=== PATIENT | female | born 1985 | race Caucasian/White ===

== ENCOUNTER 2023-09-14 15:12 | Inpatient (IN) | payer MEDICAID ==
[~2023-09-14] VITALS: Ht 157.5 cm; Wt 61.2 kg
[2023-09-14 15:17] VITALS: BP 142/55; PULSE 81; RESP 17; TEMP 97.4; O2SAT 98
[2023-09-14 15:44] LABS: BASOPHILS % (AUTO) 0.9 % (0.0-2.0); EOSINOPHILS % (AUTO) 0.3 % (0.0-4.0); LYMPHOCYTES # (AUTO) 1.7 K/uL (2.5-16.5); MEAN CORPUSCULAR HEMOGLOBIN 13 pg (27-31); MEAN CORPUSCULAR HGB CONC 26 g/dL (33-37); MEAN CORPUSCULAR VOLUME 51.1 fL (80-94); MONOCYTES # (AUTO) 0.2 K/uL (0.8-1.0); MONOCYTES % (AUTO) 4.1 % (1.7-9.3); NEUTROPHILS # (AUTO) 2.7 K/uL (1.8-7.7); NEUTROPHILS % (AUTO) 58.7 % (42.2-75.2); PLATELET COUNT (AUTO) 288 K/uL (140-450); RED BLOOD CELL COUNT(AUTO) 3.52 MIL/uL (4.20-5.40); RED CELL DISTRIBUTION WIDTH 23.2 % (11.6-13.7); WHITE BLOOD COUNT (AUTO) 4.7 K/uL (4.8-10.8)
[2023-09-14 15:49] LABS: HEMOGLOBIN 4.7 g/dL (12.0-16.0)
[2023-09-14 15:59] LABS: INR 1.04 (0.8-1.2); PROTHROMBIN TIME 10.9 secs (10.8-13.4)
[2023-09-14 16:05] LABS: ALBUMIN 3.9 g/dL (3.4-5.0); ANION GAP 12.1 (8-16); CALCIUM 8.3 mg/dL (8.5-10.1); CARBON DIOXIDE 23.6 mmol/L (21-32); CREATININE 0.7 mg/dL (0.6-1.3); POTASSIUM 3.7 mmol/L (3.5-5.1); TOTAL BILIRUBIN 0.9 mg/dL (0.0-1.0); TOTAL PROTEIN, SERUM 7.4 g/dL (6.4-8.2)
[2023-09-14 16:09] LABS: APPEARANCE,URINE CLEAR (CLEAR); BILIRUBIN,URINE NEGATIVE (NEGATIVE); BLOOD, URINE NEGATIVE (NEGATIVE); COLOR,URINE YELLOW (YELLOW); LEUKOCYTE ESTERASE ,URINE NEGATIVE (NEGATIVE); NITRITE, URINE NEGATIVE (NEGATIVE); PROTEIN,URINE NEGATIVE (NEGATIVE); UGLUCOSE NEGATIVE (NEGATIVE); UROBILINOGEN,URINE 0.2 EU/dL (0.2 - 1)
[2023-09-14 16:10] LABS: PARTIAL THROMBOPLASTIN TIME 19.9 secs (22-35.6)
[2023-09-14 20:23] VITALS: BP 105/51; PULSE 60; PULSE 65; RESP 18; TEMP 98.2; O2SAT 98
[2023-09-14] MEDS ORDERED: diphenhydrAMINE 50 MG/ML VIAL IVP ONE (23:50)
[2023-09-15] MEDS: ACETAMINOPHEN 325 MG TAB PO PRN ×2 (00:22→11:36)
[2023-09-15 02:04] LABS: BASOPHILS # (AUTO) 0.1 K/uL (0.00-0.22); BASOPHILS % (AUTO) 0.9 % (0.0-2.0); EOSINOPHILS # (AUTO) 0.1 K/uL (0-0.4); HEMATOCRIT 21.4 % (36-48); LYMPHOCYTES # (AUTO) 1.9 K/uL (2.5-16.5); LYMPHOCYTES % (AUTO) 30.8 % (20.5-51.1); MEAN CORPUSCULAR HEMOGLOBIN 17 pg (27-31); MEAN CORPUSCULAR HGB CONC 29 g/dL (33-37); MEAN CORPUSCULAR VOLUME 58.9 fL (80-94); MONOCYTES # (AUTO) 0.3 K/uL (0.8-1.0); MONOCYTES % (AUTO) 5.2 % (1.7-9.3); NEUTROPHILS # (AUTO) 3.9 K/uL (1.8-7.7); NEUTROPHILS % (AUTO) 62.1 % (42.2-75.2); PLATELET COUNT (AUTO) 261 K/uL (140-450); RED BLOOD CELL COUNT(AUTO) 3.64 MIL/uL (4.20-5.40); RED CELL DISTRIBUTION WIDTH 33.1 % (11.6-13.7); WHITE BLOOD COUNT (AUTO) 6.3 K/uL (4.8-10.8)
[2023-09-15 02:13] LABS: APPEARANCE,URINE CLEAR (CLEAR); BILIRUBIN,URINE NEGATIVE (NEGATIVE); BLOOD, URINE NEGATIVE (NEGATIVE); COLOR,URINE YELLOW (YELLOW); LEUKOCYTE ESTERASE ,URINE NEGATIVE (NEGATIVE); NITRITE, URINE NEGATIVE (NEGATIVE); PROTEIN,URINE TRACE (NEGATIVE); UGLUCOSE NEGATIVE (NEGATIVE)
[2023-09-15] MEDS ORDERED: methylPREDNISolone SS 40 MG/ML VIAL IVP ONE (02:15)
[2023-09-15 02:35] LABS: HEMOGLOBIN 6.2 g/dL (12.0-16.0)
[2023-09-15 02:39] LABS: BACTERIA,URINE 1+ /HPF (None Seen); RBC,URINE NONE SEEN /HPF (0-5); WBC,URINE 0-5 /HPF (0-5)
[2023-09-15 02:40] LABS: SQUAMOUS EPITHELIAL CELL,UR 20-50 /LPF (0-3 (FEW))
[2023-09-15 02:42] LABS: ANION GAP 12.4 (8-16); CALCIUM 8.1 mg/dL (8.5-10.1); CARBON DIOXIDE 24.7 mmol/L (21-32); CREATININE 0.7 mg/dL (0.6-1.3); POTASSIUM 4.1 mmol/L (3.5-5.1)
[2023-09-15 04:00] VITALS: BP 101/51; PULSE 55; RESP 18; TEMP 97.7; O2SAT 98
[2023-09-15 06:54] LABS: BASOPHILS % (AUTO) 0.8 % (0.0-2.0); EOSINOPHILS % (AUTO) 0.5 % (0.0-4.0); HEMATOCRIT 21.7 % (36-48); LYMPHOCYTES # (AUTO) 1.1 K/uL (2.5-16.5); LYMPHOCYTES % (AUTO) 18.2 % (20.5-51.1); MEAN CORPUSCULAR HEMOGLOBIN 17 pg (27-31); MEAN CORPUSCULAR HGB CONC 29 g/dL (33-37); MEAN CORPUSCULAR VOLUME 58.8 fL (80-94); MONOCYTES # (AUTO) 0.1 K/uL (0.8-1.0); MONOCYTES % (AUTO) 1.8 % (1.7-9.3); NEUTROPHILS # (AUTO) 4.8 K/uL (1.8-7.7); NEUTROPHILS % (AUTO) 78.7 % (42.2-75.2); PLATELET COUNT (AUTO) 249 K/uL (140-450); RED BLOOD CELL COUNT(AUTO) 3.69 MIL/uL (4.20-5.40); RED CELL DISTRIBUTION WIDTH 31.9 % (11.6-13.7); WHITE BLOOD COUNT (AUTO) 6.1 K/uL (4.8-10.8)
[2023-09-15 07:24] LABS: ALBUMIN 3.5 g/dL (3.4-5.0); ANION GAP 14.4 (8-16); CALCIUM 8.2 mg/dL (8.5-10.1); CARBON DIOXIDE 22.7 mmol/L (21-32); CREATININE 0.6 mg/dL (0.6-1.3); POTASSIUM 4.1 mmol/L (3.5-5.1); TOTAL BILIRUBIN 0.9 mg/dL (0.0-1.0); TOTAL PROTEIN, SERUM 6.7 g/dL (6.4-8.2)
[2023-09-15 07:31] LABS: HEMOGLOBIN 6.3 g/dL (12.0-16.0)
[2023-09-15 08:00] VITALS: PULSE 50
[2023-09-15] MEDS ORDERED: diphenhydrAMINE 50 MG CAP PO ONE (11:05)
[2023-09-15 16:00] VITALS: BP 108/55; PULSE 65; RESP 18; TEMP 98.8; O2SAT 100
[2023-09-15 17:05] LABS: HEMATOCRIT 26.5 % (36-48); HEMOGLOBIN 7.9 g/dL (12.0-16.0)
[2023-09-15 20:00] VITALS: PULSE 63; RESP 18; O2SAT 98
[2023-09-16] VITALS: BP 114/61; PULSE 63; RESP 18; TEMP 97; O2SAT 98
[2023-09-16 06:28] LABS: BASOPHILS % (AUTO) 0.2 % (0.0-2.0); HEMATOCRIT 25.4 % (36-48); HEMOGLOBIN 7.7 g/dL (12.0-16.0); LYMPHOCYTES # (AUTO) 1.8 K/uL (2.5-16.5); MEAN CORPUSCULAR HEMOGLOBIN 18 pg (27-31); MEAN CORPUSCULAR HGB CONC 30 g/dL (33-37); MEAN CORPUSCULAR VOLUME 61.2 fL (80-94); MONOCYTES # (AUTO) 0.5 K/uL (0.8-1.0); MONOCYTES % (AUTO) 4.7 % (1.7-9.3); NEUTROPHILS # (AUTO) 8.7 K/uL (1.8-7.7); NEUTROPHILS % (AUTO) 79.1 % (42.2-75.2); PLATELET COUNT (AUTO) 243 K/uL (140-450); RED BLOOD CELL COUNT(AUTO) 4.15 MIL/uL (4.20-5.40); RED CELL DISTRIBUTION WIDTH 34.4 % (11.6-13.7); WHITE BLOOD COUNT (AUTO) 11.1 K/uL (4.8-10.8)
[2023-09-16 08:00] VITALS: BP 104/53; PULSE 48; RESP 18; TEMP 96.4; O2SAT 100
[2023-09-16 13:46] LABS: HEMATOCRIT 26.3 % (36-48); HEMOGLOBIN 7.9 g/dL (12.0-16.0)
[2023-09-16 17:02] VITALS: BP 104/53; PULSE 50; RESP 18; TEMP 97.7
[2023-09-16] MEDS ORDERED: FERR325E14 PO (17:02)
== END 2023-09-16 18:50 | disposition home or self-care (01) | DRG 532 ==
LOC: MED 15:12 → MMU 17:26 → MTU 17:55
PROVIDERS: ADMIT General Practice; ATTEND General Practice
PROC: 30233N1 Transfusion of Nonautologous Red Blood Cells into Peripheral Vein, Percutaneous Approach (ICD-10-PCS; principal; 2023-09-15)
PROC: 02HV33Z Insertion of Infusion Device into Superior Vena Cava, Percutaneous Approach (ICD-10-PCS; 2023-09-15)
PROC: B548ZZA Ultrasonography of Superior Vena Cava, Guidance (ICD-10-PCS; 2023-09-15)
DX: D25.9 Leiomyoma of uterus, unspecified (principal); D50.0 Iron deficiency anemia secondary to blood loss (chronic); F12.90 Cannabis use, unspecified, uncomplicated; F17.200 Nicotine dependence, unspecified, uncomplicated; N92.0 Excessive and frequent menstruation with regular cycle; R19.09 Other intra-abdominal and pelvic swelling, mass and lump
CPT/HCPCS: 36415; 36430; 76856; 80048; 80053; 81001; 81003; 85018; 85025; 85045; 85610; 85730; 86886; 86900; 86901; 86920; 99291; J1200; J2920; P9016; Q0092; Q0163; Q9967

== ENCOUNTER 2023-09-20 11:25 | Emergency (ER) | payer MEDICAID ==
[~2023-09-20] VITALS: Ht 127 cm; Wt 54.4 kg
[~2023-09-20 11:25] MED LIST: FERR325E14 PO
[2023-09-20 11:43] VITALS: BP 130/54; PULSE 62; RESP 18; TEMP 97.4; O2SAT 100
[2023-09-20] MEDS ORDERED: NACL 0.9% 1,000 ML IV ONE (13:00)
[2023-09-20 13:19] LABS: BASOPHILS # (AUTO) 0.1 K/uL (0.00-0.22); BASOPHILS % (AUTO) 0.6 % (0.0-2.0); EOSINOPHILS % (AUTO) 0.6 % (0.0-4.0); HEMATOCRIT 30.5 % (36-48); LYMPHOCYTES # (AUTO) 1.5 K/uL (2.5-16.5); LYMPHOCYTES % (AUTO) 17.3 % (20.5-51.1); MEAN CORPUSCULAR HEMOGLOBIN 18 pg (27-31); MEAN CORPUSCULAR HGB CONC 30 g/dL (33-37); MEAN CORPUSCULAR VOLUME 62.4 fL (80-94); MONOCYTES # (AUTO) 0.3 K/uL (0.8-1.0); MONOCYTES % (AUTO) 3.6 % (1.7-9.3); NEUTROPHILS # (AUTO) 6.7 K/uL (1.8-7.7); NEUTROPHILS % (AUTO) 77.9 % (42.2-75.2); PLATELET COUNT (AUTO) 300 K/uL (140-450); RED BLOOD CELL COUNT(AUTO) 4.89 MIL/uL (4.20-5.40); RED CELL DISTRIBUTION WIDTH 34.8 % (11.6-13.7); WHITE BLOOD COUNT (AUTO) 8.6 K/uL (4.8-10.8)
[2023-09-20 13:36] LABS: INR 1.05 (0.8-1.2); PARTIAL THROMBOPLASTIN TIME 22.8 secs (22-35.6)
[2023-09-20 13:40] LABS: ANISOCYTOSIS 3+; HYPOCHROMASIA 2+
[2023-09-20] MEDS ORDERED: medroxyPROGESTERone 10 MG TAB PO SCH (13:40)
[2023-09-20 13:41] LABS: BURR CELLS 1+; OVALOCYTES 1+; SCHISTOCYTES 2+; TEAR DROP CELLS 1+
[2023-09-20 13:46] LABS: APPEARANCE,URINE CLEAR (CLEAR); BILIRUBIN,URINE NEGATIVE (NEGATIVE); BLOOD, URINE 3+ (NEGATIVE); COLOR,URINE YELLOW (YELLOW); LEUKOCYTE ESTERASE ,URINE 2+ (NEGATIVE); NITRITE, URINE POSITIVE (NEGATIVE); PH,URINE 6.5 (5.0-9.0); PROTEIN,URINE 3+ (NEGATIVE); UGLUCOSE NEGATIVE (NEGATIVE)
[2023-09-20 13:49] LABS: ALBUMIN 4.1 g/dL (3.4-5.0); ANION GAP 12.6 (8-16); CALCIUM 8.7 mg/dL (8.5-10.1); CARBON DIOXIDE 28.2 mmol/L (21-32); CREATININE 0.7 mg/dL (0.6-1.3); POTASSIUM 3.8 mmol/L (3.5-5.1); TOTAL BILIRUBIN 0.7 mg/dL (0.0-1.0); TOTAL PROTEIN, SERUM 7.9 g/dL (6.4-8.2)
[2023-09-20] MEDS ORDERED: MEDR10TA PO (13:49)
[2023-09-20] MEDS ORDERED: IBUP-2213 PO (13:50)
[2023-09-20 13:55] VITALS: BP 122/56; PULSE 59; RESP 18; TEMP 98.1; O2SAT 100
[2023-09-20 14:00] LABS: BACTERIA,URINE 0-2 /HPF (None Seen); RBC,URINE >100 /HPF (0-5); WBC,URINE 0-5 /HPF (0-5)
[2023-09-20 14:01] LABS: SQUAMOUS EPITHELIAL CELL,UR 0-3 (FEW) /LPF (0-3 (FEW))
[2023-09-20] MEDS ORDERED: CEPH-588 PO (21:05)
== END 2023-09-20 14:20 | disposition home or self-care (01) ==
LOC: MED 11:25
DX: N92.0 Excessive and frequent menstruation with regular cycle (principal); R19.09 Other intra-abdominal and pelvic swelling, mass and lump; D64.9 Anemia, unspecified; R10.2 Pelvic and perineal pain; Z79.899 Other long term (current) drug therapy; Z79.1 Long term (current) use of non-steroidal anti-inflammatories (NSAID)
CPT/HCPCS: 36415; 80053; 81001; 81025; 84702; 85025; 85610; 85730; 86886; 86900; 86901; 87086; 96360; 99283; J7030

== ENCOUNTER 2024-03-04 22:55 | Inpatient (IN) | payer OTHER ==
[~2024-03-04] VITALS: Ht 167.6 cm; Wt 59.9 kg
[~2024-03-04 22:55] MED LIST changes: +CEPH-588 PO; +IBUP-2213 PO; +MEDR10TA PO
[2024-03-04 23:02] VITALS: BP 110/76; PULSE 82; RESP 18; TEMP 98.5; O2SAT 100
[2024-03-04 23:41] LABS: BASOPHILS # (AUTO) 0.1 K/uL (0.00-0.22); BASOPHILS % (AUTO) 1.3 % (0.0-2.0); EOSINOPHILS # (AUTO) 0.1 K/uL (0-0.4); EOSINOPHILS % (AUTO) 0.7 % (0.0-4.0); LYMPHOCYTES # (AUTO) 2.5 K/uL (2.5-16.5); LYMPHOCYTES % (AUTO) 35.6 % (20.5-51.1); MEAN CORPUSCULAR HEMOGLOBIN 14 pg (27-31); MEAN CORPUSCULAR HGB CONC 26 g/dL (33-37); MEAN CORPUSCULAR VOLUME 51.9 fL (80-94); MONOCYTES # (AUTO) 0.3 K/uL (0.8-1.0); MONOCYTES % (AUTO) 3.6 % (1.7-9.3); NEUTROPHILS # (AUTO) 4.1 K/uL (1.8-7.7); NEUTROPHILS % (AUTO) 58.8 % (42.2-75.2); PLATELET COUNT (AUTO) 353 K/uL (140-450); RED BLOOD CELL COUNT(AUTO) 3.89 MIL/uL (4.20-5.40); RED CELL DISTRIBUTION WIDTH 22.4 % (11.6-13.7)
[2024-03-04 23:50] LABS: HEMATOCRIT 20.2 % (36-48); HEMOGLOBIN 5.3 g/dL (12.0-16.0)
[2024-03-04 23:57] LABS: ANION GAP 12.5 (8-16); CALCIUM 8.8 mg/dL (8.5-10.1); CARBON DIOXIDE 25.1 mmol/L (21-32); CREATININE 0.8 mg/dL (0.6-1.3); POTASSIUM 3.6 mmol/L (3.5-5.1)
[2024-03-05] MEDS ORDERED: ACETAMINOPHEN 325 MG TAB PO PRN (10:10)
[2024-03-05] MEDS ORDERED: ONDANSETRON 4 MG/2 ML VIAL IVP PRN (10:10)
[2024-03-05] MEDS ORDERED: MORPHINE SULFATE 2 MG/ML SYR IVP PRN (10:10)
[2024-03-05 12:00] VITALS: PULSE 60; RESP 16; RESP 18; O2SAT 100; O2SAT 99
[2024-03-05 19:43] VITALS: BP 102/46; PULSE 71; RESP 18; TEMP 98.3; O2SAT 99
[2024-03-05 20:00] VITALS: PULSE 71; RESP 18; O2SAT 99
[2024-03-05] MEDS: MEDS-TO-BEDS MC SCH (20:44)
[2024-03-06 02:36] LABS: HEMOGLOBIN 7.5 g/dL (12.0-16.0)
[2024-03-06 04:00] VITALS: BP 107/40; PULSE 58; RESP 16; TEMP 97.3; O2SAT 99
[2024-03-06 06:25] LABS: BASOPHILS % (AUTO) 0.3 % (0.0-2.0); EOSINOPHILS # (AUTO) 0.1 K/uL (0-0.4); EOSINOPHILS % (AUTO) 0.8 % (0.0-4.0); HEMATOCRIT 25.1 % (36-48); HEMOGLOBIN 7.5 g/dL (12.0-16.0); LYMPHOCYTES # (AUTO) 1.7 K/uL (2.5-16.5); LYMPHOCYTES % (AUTO) 26.6 % (20.5-51.1); MEAN CORPUSCULAR HEMOGLOBIN 19 pg (27-31); MEAN CORPUSCULAR HGB CONC 30 g/dL (33-37); MEAN CORPUSCULAR VOLUME 62.4 fL (80-94); MONOCYTES # (AUTO) 0.4 K/uL (0.8-1.0); MONOCYTES % (AUTO) 5.8 % (1.7-9.3); NEUTROPHILS # (AUTO) 4.2 K/uL (1.8-7.7); NEUTROPHILS % (AUTO) 66.5 % (42.2-75.2); PLATELET COUNT (AUTO) 273 K/uL (140-450); RED BLOOD CELL COUNT(AUTO) 4.02 MIL/uL (4.20-5.40); RED CELL DISTRIBUTION WIDTH 36.3 % (11.6-13.7); WHITE BLOOD COUNT (AUTO) 6.3 K/uL (4.8-10.8)
[2024-03-06 06:49] LABS: ANION GAP 13.3 (8-16); CALCIUM 8.6 mg/dL (8.5-10.1); CARBON DIOXIDE 23.9 mmol/L (21-32); CREATININE 0.7 mg/dL (0.6-1.3); POTASSIUM 4.2 mmol/L (3.5-5.1)
[2024-03-06 07:14] LABS: INR 1.05 (0.8-1.2); PARTIAL THROMBOPLASTIN TIME 21.2 secs (22-35.6)
[2024-03-06 08:00] VITALS: PULSE 61; RESP 18; O2SAT 99
[2024-03-06 17:10] VITALS: BP 107/40; PULSE 61; RESP 18; TEMP 97.3
== END 2024-03-06 18:05 | disposition home or self-care (01) | DRG 532 ==
LOC: MED 22:55 → MTU 03-05 10:09
PROVIDERS: ADMIT Hospitalist; ATTEND Hospitalist
PROC: 30233N1 Transfusion of Nonautologous Red Blood Cells into Peripheral Vein, Percutaneous Approach (ICD-10-PCS; principal; 2024-03-05)
DX: D25.9 Leiomyoma of uterus, unspecified (principal); D62 Acute posthemorrhagic anemia; N93.9 Abnormal uterine and vaginal bleeding, unspecified; Z79.899 Other long term (current) drug therapy
CPT/HCPCS: 36415; 80048; 83735; 85018; 85025; 85610; 85730; 86886; 86900; 86901; 86920; 99285; P9016

== ENCOUNTER 2024-03-06 11:30 | Inpatient (IN) | payer OTHER ==
[~2024-03-06] VITALS: Ht 162.6 cm; Wt 83.0 kg
[~2024-03-06 11:30] MED LIST changes: -CEPH-588 PO; -IBUP-2213 PO; -MEDR10TA PO
[2024-03-25 10:29] LABS: ALBUMIN 3.3 g/dL (3.4-5.0); ANION GAP 11.7 (8-16); CALCIUM 8.1 mg/dL (8.5-10.1); CREATININE 0.6 mg/dL (0.6-1.3); POTASSIUM 3.7 mmol/L (3.5-5.1); TOTAL BILIRUBIN 1.8 mg/dL (0.0-1.0); TOTAL PROTEIN, SERUM 6.3 g/dL (6.4-8.2)
[2024-03-25 10:58] LABS: BASOPHILS % (AUTO) 0.6 % (0.0-2.0); EOSINOPHILS % (AUTO) 0.3 % (0.0-4.0); HEMATOCRIT 30.1 % (36-48); LYMPHOCYTES # (AUTO) 1.1 K/uL (2.5-16.5); LYMPHOCYTES % (AUTO) 16.3 % (20.5-51.1); MEAN CORPUSCULAR HEMOGLOBIN 22 pg (27-31); MEAN CORPUSCULAR HGB CONC 31 g/dL (33-37); MEAN CORPUSCULAR VOLUME 68.8 fL (80-94); MONOCYTES # (AUTO) 0.3 K/uL (0.8-1.0); MONOCYTES % (AUTO) 4.9 % (1.7-9.3); NEUTROPHILS # (AUTO) 5.4 K/uL (1.8-7.7); NEUTROPHILS % (AUTO) 77.9 % (42.2-75.2); PLATELET COUNT (AUTO) 296 K/uL (140-450); RED BLOOD CELL COUNT(AUTO) 4.37 MIL/uL (4.20-5.40); RED CELL DISTRIBUTION WIDTH 34.7 % (11.6-13.7)
[2024-03-25 11:56] LABS: HEMOGLOBIN 9.4 g/dL (12.0-16.0)
[2024-03-25] MEDS ORDERED: SEVOFLURANE 250 ML BTL INH ONE (12:00)
[2024-03-25] MEDS ORDERED: PROPOFOL 200 MG/20 ML VIAL IV ONE (12:00)
[2024-03-25] MEDS: ceFAZolin 2,000 MG VIAL ONE (12:06)
[2024-03-25] MEDS: HYDROmorphone PFS 2 MG/ML SYR ONE ×2 (12:11→13:36)
[2024-03-25] MEDS ORDERED: IBUPROFEN 800 MG TAB PO PRN (12:25)
[2024-03-25] MEDS ORDERED: SIMETHICONE 80 MG TAB.CHEW PO PRN (12:25)
[2024-03-25] MEDS ORDERED: TEMAZEPAM 15 MG CAP PO PRN (12:25)
[2024-03-25] MEDS ORDERED: oxyCODONE/APAP 5/325 MG 1 TAB TAB PO PRN (12:25)
[2024-03-25] MEDS: BUPIVACAINE-MPF 0.25% 30 ML VIAL INJ ONE (12:34)
[2024-03-25] MEDS: LIDOCAINE/EPI 1% 1:100000 20 ML VIAL INJ ONE (12:34)
[2024-03-25] MEDS: ROCURONIUM 50 MG/5 ML VIAL IV ONE (12:36)
[2024-03-25] MEDS: ePHEDrine 50 MG/ML VIAL ONE ×2 (12:36)
[2024-03-25] MEDS: GLYCOPYRROLATE 0.2 MG/ML VIAL ONE ×2 (12:36→13:20)
[2024-03-25] MEDS: ONDANSETRON 4 MG/2 ML VIAL ONE (12:44)
[2024-03-25] MEDS: DEXAMETHASONE 4 MG/ML VIAL ONE (12:44)
[2024-03-25] MEDS: HYDROmorphone 1 MG/ML AMP IVP PRN ×2 (13:05→18:05)
[2024-03-25] MEDS: ACETAMINOPHEN 100 ML IV ONE (13:36)
[2024-03-25] MEDS: ACETAMINOPHEN 100 ML IV PRN (13:37)
[2024-03-25] MEDS ORDERED: ONDANSETRON 4 MG/2 ML VIAL IVP PRN (13:45)
[2024-03-25] MEDS: KETOROLAC 30 MG/ML VIAL IVP PRN (14:15)
[2024-03-25 15:15] VITALS: BP 101/33; PULSE 52; RESP 16; TEMP 96.9; O2SAT 97
[2024-03-25 16:00] VITALS: BP 95/46; PULSE 57; RESP 17; TEMP 97.3; O2SAT 97
[2024-03-25 20:00] VITALS: BP 105/52; PULSE 60; RESP 18; TEMP 98.3; O2SAT 98
[2024-03-25] MEDS: DOCUSATE SOD/SENNA 50/8.6 MG 1 TAB PO SCH (21:00)
[2024-03-25] MEDS: MEDS-TO-BEDS MC SCH (21:22)
[2024-03-26 04:00] VITALS: BP 102/47; PULSE 65; RESP 18; TEMP 98.1; O2SAT 99
[2024-03-26 08:00] VITALS: BP 102/57; PULSE 50; PULSE 60; RESP 18; TEMP 98.9; O2SAT 98
[2024-03-26] MEDS: oxyCODONE/APAP 5/325 MG 1 TAB TAB PO PRN (14:01)
[2024-03-26 16:00] VITALS: BP 106/53; PULSE 55; RESP 19; TEMP 98; O2SAT 97
[2024-03-26 20:00] VITALS: PULSE 75; RESP 18; TEMP 98.2; O2SAT 97
[2024-03-27 04:00] VITALS: BP 100/60; PULSE 56; RESP 18; TEMP 98; O2SAT 96
[2024-03-27 08:00] VITALS: PULSE 84; RESP 18; TEMP 98.1; O2SAT 99
== END 2024-03-27 13:10 | disposition home or self-care (01) | DRG 519 ==
LOC: MMU 03-25 09:45 → MTU 03-25 15:15
PROVIDERS: ADMIT Obstetrics & Gynecology; ATTEND Obstetrics & Gynecology
PROC: 0UT90ZL Resection of Uterus, Supracervical, Open Approach (ICD-10-PCS; principal; 2024-03-25 11:30)
DX: D25.1 Intramural leiomyoma of uterus (principal); N92.0 Excessive and frequent menstruation with regular cycle
CPT/HCPCS: 36415; 80053; 85025; 87081; 88307; J1100; J1170; J1885; J2001; J2405; J2704; J2710; J3490

== ENCOUNTER 2024-03-24 19:31 | Emergency (ER) | payer OTHER ==
[~2024-03-24] VITALS: Ht 154.9 cm; Wt 59.9 kg
[2024-03-24 19:52] VITALS: BP 102/43; PULSE 78; RESP 16; TEMP 98.8; O2SAT 100
[2024-03-24 21:02] LABS: BASOPHILS % (AUTO) 0.4 % (0.0-2.0); EOSINOPHILS % (AUTO) 0.3 % (0.0-4.0); HEMATOCRIT 22.1 % (36-48); LYMPHOCYTES # (AUTO) 2.2 K/uL (2.5-16.5); LYMPHOCYTES % (AUTO) 24.2 % (20.5-51.1); MEAN CORPUSCULAR HEMOGLOBIN 18 pg (27-31); MEAN CORPUSCULAR HGB CONC 30 g/dL (33-37); MEAN CORPUSCULAR VOLUME 61.2 fL (80-94); MONOCYTES # (AUTO) 0.4 K/uL (0.8-1.0); MONOCYTES % (AUTO) 4.2 % (1.7-9.3); NEUTROPHILS # (AUTO) 6.5 K/uL (1.8-7.7); NEUTROPHILS % (AUTO) 70.9 % (42.2-75.2); PLATELET COUNT (AUTO) 361 K/uL (140-450); RED BLOOD CELL COUNT(AUTO) 3.61 MIL/uL (4.20-5.40); RED CELL DISTRIBUTION WIDTH 31.7 % (11.6-13.7); WHITE BLOOD COUNT (AUTO) 9.1 K/uL (4.8-10.8)
[2024-03-24 21:07] LABS: ANION GAP 9.9 (8-16); CALCIUM 8.5 mg/dL (8.5-10.1); CARBON DIOXIDE 27.9 mmol/L (21-32); CREATININE 0.8 mg/dL (0.6-1.3); POTASSIUM 3.8 mmol/L (3.5-5.1)
[2024-03-24 21:16] LABS: HEMOGLOBIN 6.6 g/dL (12.0-16.0)
[2024-03-24 21:19] LABS: INR 0.94 (0.8-1.2); PARTIAL THROMBOPLASTIN TIME 21.2 secs (22-35.6); PROTHROMBIN TIME 9.9 secs (10.8-13.4)
[2024-03-25] MEDS: NACL 0.9% 1,000 ML IV ONE (00:51)
[2024-03-25 01:30] VITALS: TEMP 97.7
[2024-03-25 04:43] VITALS: BP 107/61; PULSE 62; RESP 16; O2SAT 97
== END 2024-03-25 04:45 | disposition home or self-care (01) ==
LOC: MED 19:31
DX: D64.9 Anemia, unspecified (principal); N93.8 Other specified abnormal uterine and vaginal bleeding; Z79.899 Other long term (current) drug therapy
CPT/HCPCS: 36415; 36430; 80048; 81025; 84484; 85025; 85610; 85730; 86886; 86900; 86901; 86920; 96360; 99291; P9016

== ENCOUNTER 2024-06-25 10:42 | Emergency (ER) | payer OTHER ==
[~2024-06-25] VITALS: Ht 152.4 cm; Wt 59.0 kg
[2024-06-25 10:48] VITALS: BP 114/57; PULSE 87; RESP 17; TEMP 98.5; O2SAT 92
[2024-06-25] MEDS ORDERED: ALBUTEROL SULFATE/IPRATROPIU 3 ML SOL IH ONE ×2 (11:14→11:45)
[2024-06-25] MEDS: ALBUTEROL SULFATE/IPRATROPIU 3 ML SOL IH ONE (11:18)
[2024-06-25] MEDS: predniSONE 20 MG TAB PO ONE (11:22)
[2024-06-25 11:49] LABS: FLU A ANTIGEN negative (NEGATIVE); FLU B ANTIGEN negative (NEGATIVE)
[2024-06-25] MEDS: ALBUTEROL 0.083% 2.5 MG/3 ML NEBU INH ONE ×2 (11:53→12:41)
[2024-06-25 11:54] VITALS: PULSE 58; RESP 16; O2SAT 94
[2024-06-25] MEDS ORDERED: ALBU0.0912 IH (12:16)
[2024-06-25] MEDS ORDERED: INHA1SPA89 MC (12:16)
[2024-06-25] MEDS ORDERED: PRED20TA5 PO (12:16)
[2024-06-25] MEDS ORDERED: LORA1T1237 PO (12:16)
[2024-06-25 12:41] VITALS: PULSE 71; RESP 16; O2SAT 91
[2024-06-25 13:29] VITALS: BP 91/51; PULSE 80; RESP 16; TEMP 98.5; O2SAT 8
== END 2024-06-25 13:29 | disposition home or self-care (01) ==
LOC: MED 10:42
DX: J98.01 Acute bronchospasm (principal); T78.40XA Allergy, unspecified, initial encounter; Z20.822 Contact with and (suspected) exposure to COVID-19; F17.210 Nicotine dependence, cigarettes, uncomplicated; Z90.710 Acquired absence of both cervix and uterus; Z79.899 Other long term (current) drug therapy; X58.XXXA Exposure to other specified factors, initial encounter
CPT/HCPCS: 87426; 87804; 94640; 99285; J7512; J7613

== ENCOUNTER 2024-07-13 09:52 | Emergency (ER) | payer OTHER ==
[~2024-07-13] VITALS: Ht 162.6 cm; Wt 50.8 kg
[~2024-07-13 09:52] MED LIST changes: +ALBU0.0912 IH; +INHA1SPA89 MC; +LORA1T1237 PO; +PRED20TA5 PO
[2024-07-13 09:56] VITALS: BP 116/59; PULSE 88; RESP 22; TEMP 97.9; O2SAT 93
[2024-07-13] MEDS: IPRATROPIUM 0.02% 0.5 MG/2.5 ML NEBU INH ONE (10:28)
[2024-07-13 10:29] VITALS: PULSE 92; RESP 28; O2SAT 97
[2024-07-13] MEDS: ALBUTEROL 0.083% 2.5 MG/3 ML NEBU INH ONE (10:29)
[2024-07-13] MEDS: predniSONE 20 MG TAB PO ONE (10:56)
[2024-07-13] MEDS ORDERED: ALBU0.0912 IH (12:26)
[2024-07-13] MEDS ORDERED: AZIT500T8 PO (12:26)
[2024-07-13] MEDS ORDERED: PRED20TA5 PO (12:26)
[2024-07-13] MEDS ORDERED: TIOT4MIS IH (12:26)
[2024-07-13 12:40] VITALS: BP 105/61; PULSE 93; RESP 23; TEMP 97.9; O2SAT 97
== END 2024-07-13 12:38 | disposition home or self-care (01) ==
LOC: MED 09:52
DX: R06.02 Shortness of breath (principal); R05.9 Cough, unspecified; F17.200 Nicotine dependence, unspecified, uncomplicated; Z71.6 Tobacco abuse counseling; Z79.899 Other long term (current) drug therapy
CPT/HCPCS: 71045; 94640; 99285; J7512; J7613; J7644

== ENCOUNTER 2024-07-28 17:08 | Inpatient (IN) | payer OTHER ==
[~2024-07-28] VITALS: Ht 157.5 cm; Wt 49.9 kg
[~2024-07-28 17:08] MED LIST changes: +AZIT500T8 PO; +TIOT4MIS IH
[2024-07-28] MEDS ORDERED: IPRATROPIUM 0.02% 0.5 MG/2.5 ML NEBU INH ONE (17:13)
[2024-07-28] MEDS ORDERED: ALBUTEROL 0.083% 2.5 MG/3 ML NEBU INH ONE (17:13)
[2024-07-28 17:16] VITALS: BP 132/77; PULSE 120; RESP 30; TEMP 99.1; O2SAT 89
[2024-07-28 17:35] VITALS: PULSE 99; RESP 17; O2SAT 93
[2024-07-28] MEDS: ALBUTEROL 0.083% 2.5 MG/3 ML NEBU INH ONE ×3 (17:39→20:48)
[2024-07-28] MEDS: IPRATROPIUM 0.02% 0.5 MG/2.5 ML NEBU INH ONE (17:39)
[2024-07-28 17:40] VITALS: PULSE 126; RESP 22; O2SAT 93
[2024-07-28] MEDS: methylPREDNISolone SS 125 MG/2 ML VIAL IVP ONE (18:00)
[2024-07-28] MEDS: KETOROLAC 30 MG/ML VIAL IVP ONE (19:22)
[2024-07-28 20:48] VITALS: PULSE 101; RESP 20; O2SAT 90
[2024-07-28 21:47] LABS: BASOPHILS # (AUTO) 0.1 K/uL (0.00-0.22); BASOPHILS % (AUTO) 0.3 % (0.0-2.0); EOSINOPHILS # (AUTO) 0.4 K/uL (0-0.4); EOSINOPHILS % (AUTO) 1.7 % (0.0-4.0); HEMATOCRIT 42.1 % (36-48); HEMOGLOBIN 13.1 g/dL (12.0-16.0); LYMPHOCYTES # (AUTO) 1.5 K/uL (2.5-16.5); LYMPHOCYTES % (AUTO) 6.9 % (20.5-51.1); MEAN CORPUSCULAR HEMOGLOBIN 21 pg (27-31); MEAN CORPUSCULAR HGB CONC 31 g/dL (33-37); MEAN CORPUSCULAR VOLUME 66.6 fL (80-94); MONOCYTES # (AUTO) 0.7 K/uL (0.8-1.0); MONOCYTES % (AUTO) 3.3 % (1.7-9.3); NEUTROPHILS # (AUTO) 19.3 K/uL (1.8-7.7); NEUTROPHILS % (AUTO) 87.8 % (42.2-75.2); PLATELET COUNT (AUTO) 280 K/uL (140-450); RED BLOOD CELL COUNT(AUTO) 6.33 MIL/uL (4.20-5.40); RED CELL DISTRIBUTION WIDTH 20.2 % (11.6-13.7); WHITE BLOOD COUNT (AUTO) 21.9 K/uL (4.8-10.8)
[2024-07-28 22:01] LABS: ALBUMIN 3.7 g/dL (3.4-5.0); ANION GAP 17.1 (8-16); CARBON DIOXIDE 24.6 mmol/L (21-32); POTASSIUM 3.7 mmol/L (3.5-5.1); TOTAL BILIRUBIN 0.5 mg/dL (0.0-1.0); TOTAL PROTEIN, SERUM 7.8 g/dL (6.4-8.2)
[2024-07-28] MEDS ORDERED: ALBUTEROL 0.083% 2.5 MG/3 ML NEBU INH PRN (23:25)
[2024-07-28] MEDS ORDERED: MORPHINE SULFATE 2 MG/ML SYR IVP PRN (23:25)
[2024-07-28] MEDS ORDERED: ONDANSETRON 4 MG/2 ML VIAL IVP PRN (23:25)
[2024-07-28] MEDS ORDERED: ACETAMINOPHEN 325 MG TAB PO PRN (23:25)
[2024-07-29] VITALS (14 sets, daily range): BP systolic 107–122; BP diastolic 55–67; PULSE 83–120; RESP 16–20; TEMP 97.3–98.5; O2SAT 92–100
[2024-07-29] MEDS ORDERED: methylPREDNISolone SS 40 MG in WATER STERILE 1 ML IV SCH
[2024-07-29] MEDS ORDERED: IPRATROPIUM 0.02% 0.5 MG/2.5 ML NEBU INH SCH (01:00)
[2024-07-29] MEDS: ALBUTEROL SULFATE/IPRATROPIU 3 ML SOL IH SCH ×2 (01:30→19:06)
[2024-07-29 05:31] LABS: HEMATOCRIT 36.9 % (36-48); HEMOGLOBIN 11.5 g/dL (12.0-16.0); LYMPHOCYTES # (AUTO) 0.7 K/uL (2.5-16.5); LYMPHOCYTES % (AUTO) 3.4 % (20.5-51.1); MEAN CORPUSCULAR HEMOGLOBIN 21 pg (27-31); MEAN CORPUSCULAR HGB CONC 31 g/dL (33-37); MONOCYTES # (AUTO) 0.1 K/uL (0.8-1.0); MONOCYTES % (AUTO) 0.7 % (1.7-9.3); NEUTROPHILS # (AUTO) 18.5 K/uL (1.8-7.7); NEUTROPHILS % (AUTO) 95.9 % (42.2-75.2); PLATELET COUNT (AUTO) 262 K/uL (140-450); WHITE BLOOD COUNT (AUTO) 19.3 K/uL (4.8-10.8)
[2024-07-29 05:55] LABS: ANION GAP 14.3 (8-16); CALCIUM 9.2 mg/dL (8.5-10.1); CARBON DIOXIDE 21.8 mmol/L (21-32); CREATININE 1.1 mg/dL (0.6-1.3); POTASSIUM 4.1 mmol/L (3.5-5.1)
[2024-07-29] MEDS: MEDS-TO-BEDS MC SCH (09:01)
[2024-07-29 16:12] LABS: FLU A ANTIGEN NEGATIVE (NEGATIVE); FLU B ANTIGEN NEGATIVE (NEGATIVE); RSV NEGATIVE (NEGATIVE)
[2024-07-29] MEDS: methylPREDNISolone SS 40 MG/ML VIAL IVP SCH (18:17)
[2024-07-29] MEDS: BUDESONIDE 0.5 MG/2 ML NEBU INH SCH (19:06)
[2024-07-29] MEDS ORDERED: BUDESONIDE 0.5 MG/2 ML NEBU INH SCH (19:30)
[2024-07-29] MEDS: FAMOTIDINE 20 MG TAB PO SCH (20:37)
[2024-07-30] VITALS (11 sets, daily range): BP systolic 98–122; BP diastolic 57–66; PULSE 78–120; RESP 16–21; TEMP 97.5–97.8; O2SAT 93–99
[2024-07-30 05:51] LABS: BASOPHILS % (AUTO) 0.1 % (0.0-2.0); HEMATOCRIT 35.3 % (36-48); HEMOGLOBIN 10.9 g/dL (12.0-16.0); LYMPHOCYTES # (AUTO) 0.9 K/uL (2.5-16.5); LYMPHOCYTES % (AUTO) 2.7 % (20.5-51.1); MEAN CORPUSCULAR HEMOGLOBIN 20 pg (27-31); MEAN CORPUSCULAR HGB CONC 31 g/dL (33-37); MEAN CORPUSCULAR VOLUME 65.9 fL (80-94); MONOCYTES # (AUTO) 0.2 K/uL (0.8-1.0); MONOCYTES % (AUTO) 0.5 % (1.7-9.3); NEUTROPHILS # (AUTO) 31.7 K/uL (1.8-7.7); NEUTROPHILS % (AUTO) 96.7 % (42.2-75.2); PLATELET COUNT (AUTO) 275 K/uL (140-450); RED BLOOD CELL COUNT(AUTO) 5.36 MIL/uL (4.20-5.40)
[2024-07-30 06:21] LABS: WHITE BLOOD COUNT (AUTO) 32.7 K/uL (4.8-10.8)
[2024-07-30 07:01] LABS: MAGNESIUM 1.8 mg/dL (1.8-2.4)
[2024-07-30 07:02] LABS: PHOSPHORUS 3.6 mg/dL (2.5-4.9)
[2024-07-30 07:05] LABS: ANION GAP 14.2 (8-16); CALCIUM 8.9 mg/dL (8.5-10.1); CARBON DIOXIDE 23.1 mmol/L (21-32); POTASSIUM 4.3 mmol/L (3.5-5.1)
[2024-07-30 07:06] LABS: CREATININE 0.9 mg/dL (0.6-1.3)
[2024-07-30] MEDS: ENOXAPARIN 40 MG/0.4 ML SYR SUBQ SCH (08:52)
[2024-07-30] MEDS ORDERED: methylPREDNISolone SS 40 MG/ML VIAL IVP SCH (21:00)
[2024-07-30] MEDS: methylPREDNISolone SS 40 MG/ML VIAL IVP SCH (22:29)
[2024-07-31] VITALS (10 sets, daily range): BP systolic 97–132; BP diastolic 55–70; PULSE 71–116; RESP 16–19; TEMP 97.4–98; O2SAT 93–99
[2024-07-31 05:44] LABS: HEMATOCRIT 34.6 % (36-48); HEMOGLOBIN 10.6 g/dL (12.0-16.0); LYMPHOCYTES % (AUTO) 3.7 % (20.5-51.1); MEAN CORPUSCULAR HEMOGLOBIN 20 pg (27-31); MEAN CORPUSCULAR HGB CONC 31 g/dL (33-37); MEAN CORPUSCULAR VOLUME 66.2 fL (80-94); MONOCYTES # (AUTO) 0.2 K/uL (0.8-1.0); MONOCYTES % (AUTO) 0.8 % (1.7-9.3); NEUTROPHILS # (AUTO) 26.7 K/uL (1.8-7.7); NEUTROPHILS % (AUTO) 95.5 % (42.2-75.2); PLATELET COUNT (AUTO) 279 K/uL (140-450); RED BLOOD CELL COUNT(AUTO) 5.22 MIL/uL (4.20-5.40); RED CELL DISTRIBUTION WIDTH 21.3 % (11.6-13.7)
[2024-07-31 05:57] LABS: MAGNESIUM 2.2 mg/dL (1.8-2.4); PHOSPHORUS 3.9 mg/dL (2.5-4.9)
[2024-07-31 06:00] LABS: ANION GAP 13.8 (8-16); CALCIUM 8.5 mg/dL (8.5-10.1); CARBON DIOXIDE 22.3 mmol/L (21-32); CREATININE 0.9 mg/dL (0.6-1.3); POTASSIUM 4.1 mmol/L (3.5-5.1)
[2024-08-01] VITALS (7 sets, daily range): BP systolic 102–132; BP diastolic 55–70; PULSE 58–82; RESP 16–19; TEMP 97.9–98.6; O2SAT 93–98
[2024-08-01 05:15] LABS: HEMATOCRIT 34.7 % (36-48); HEMOGLOBIN 10.9 g/dL (12.0-16.0); LYMPHOCYTES % (AUTO) 4.9 % (20.5-51.1); MEAN CORPUSCULAR HEMOGLOBIN 21 pg (27-31); MEAN CORPUSCULAR HGB CONC 31 g/dL (33-37); MEAN CORPUSCULAR VOLUME 66.5 fL (80-94); MONOCYTES # (AUTO) 0.4 K/uL (0.8-1.0); MONOCYTES % (AUTO) 1.9 % (1.7-9.3); NEUTROPHILS # (AUTO) 18.4 K/uL (1.8-7.7); NEUTROPHILS % (AUTO) 93.2 % (42.2-75.2); PLATELET COUNT (AUTO) 280 K/uL (140-450); RED BLOOD CELL COUNT(AUTO) 5.22 MIL/uL (4.20-5.40); RED CELL DISTRIBUTION WIDTH 21.8 % (11.6-13.7); WHITE BLOOD COUNT (AUTO) 19.7 K/uL (4.8-10.8)
[2024-08-01 05:23] LABS: ANION GAP 13.9 (8-16); CALCIUM 8.6 mg/dL (8.5-10.1); CARBON DIOXIDE 23.9 mmol/L (21-32); CREATININE 0.8 mg/dL (0.6-1.3); POTASSIUM 3.8 mmol/L (3.5-5.1)
[2024-08-01 05:36] LABS: MAGNESIUM 2.4 mg/dL (1.8-2.4); PHOSPHORUS 3.7 mg/dL (2.5-4.9)
[2024-08-01] MEDS: BENZONATATE 100 MG CAPLF PO PRN (09:32)
[2024-08-01] MEDS ORDERED: AZIT250T11 PO (12:00)
[2024-08-01] MEDS ORDERED: PRON INH (12:00)
[2024-08-01] MEDS ORDERED: PRED20TA5 PO (12:00)
== END 2024-08-01 17:55 | disposition home or self-care (01) | DRG 720 ==
LOC: MED 17:08 → MTU 23:25
PROVIDERS: ADMIT Student in an Organized Health Care Education/Training Program; ATTEND Student in an Organized Health Care Education/Training Program
DX: A41.9 Sepsis, unspecified organism (principal); J96.01 Acute respiratory failure with hypoxia; J45.901 Unspecified asthma with (acute) exacerbation; Z20.822 Contact with and (suspected) exposure to COVID-19; Z79.899 Other long term (current) drug therapy; Z90.710 Acquired absence of both cervix and uterus; J20.9 Acute bronchitis, unspecified
CPT/HCPCS: 36415; 71045; 71275; 80048; 80053; 82785; 83735; 84100; 84702; 85025; 86003; 87070; 87081; 87205; 87420; 93005; 94010; 94640; 96374; 96375; 99285; J0696; J1650; J1885; J2919; J2920; J7060; J7613; J7626; J7644; Q0092; Q9967

== ENCOUNTER 2024-08-26 10:31 | Emergency (ER) | payer OTHER ==
[~2024-08-26] VITALS: Ht 154.9 cm; Wt 59.0 kg
[~2024-08-26 10:31] MED LIST changes: +AZIT250T11 PO; -AZIT500T8 PO; +PRON INH
[2024-08-26 10:45] VITALS: BP 134/75; PULSE 109; RESP 24; TEMP 98.4; O2SAT 93
[2024-08-26 11:00] VITALS: O2SAT 95
[2024-08-26] MEDS ORDERED: ALBUTEROL SULFATE/IPRATROPIU 3 ML SOL IH STA (11:08)
[2024-08-26] MEDS ORDERED: ALBUTEROL 0.083% 2.5 MG/3 ML NEBU INH STA (11:10)
[2024-08-26] MEDS: ALBUTEROL SULFATE/IPRATROPIU 3 ML SOL IH ONE (11:20)
[2024-08-26 11:22] VITALS: PULSE 81; PULSE 89; RESP 23; RESP 25; O2SAT 96
[2024-08-26] MEDS ORDERED: predniSONE 20 MG TAB ONE (11:41)
[2024-08-26] MEDS: predniSONE 20 MG TAB PO ONE (11:44)
[2024-08-26] MEDS ORDERED: PRED20TA5 PO (13:23)
[2024-08-26 13:30] VITALS: BP 132/72; PULSE 88; RESP 16; TEMP 98.4; O2SAT 98
== END 2024-08-26 13:30 | disposition home or self-care (01) ==
LOC: MED 10:31
DX: J45.901 Unspecified asthma with (acute) exacerbation (principal); R03.0 Elevated blood-pressure reading, without diagnosis of hypertension; Z79.899 Other long term (current) drug therapy
CPT/HCPCS: 71045; 94640; 99285; J7512